=== PATIENT | female | born 1995 | race Hispanic/Latino ===

== ENCOUNTER 2023-11-15 20:09 | Emergency (ER) | payer MEDICAID, OTHER ==
[~2023-11-15] VITALS: Ht 160 cm; Wt 69.9 kg
[~2023-11-15 20:09] MED LIST: IBUP-2088 PO; PREN-154 PO
[2023-11-15 21:08] VITALS: BP 111/57; PULSE 107; RESP 18; O2SAT 100
[2023-11-15 21:49] LABS: RAPID GROUP A STREP negative (NEGATIVE)
[2023-11-15 22:00] LABS: INFLUENZA TYPE A Negative For Type A (NEGATIVE); INFLUENZA TYPE B Negative For Type B (NEGATIVE)
[2023-11-15 22:20] LABS: SARS-CoV-2, RNA, NAAT NEGATIVE SARS CoV-2 (NEGATIVE)
[2023-11-15] MEDS: PREDNISONE 20 MG TABLET PO ONE (22:32)
[2023-11-15 22:33] VITALS: TEMP 100.8
[2023-11-15] MEDS: IBUPROFEN 600 MG TABLET PO ONE (22:33)
[2023-11-15] MEDS ORDERED: PRED20TA3 PO (22:59)
[2023-11-15] MEDS ORDERED: IBUP-2070 PO (22:59)
[2023-11-15] MEDS ORDERED: BROM118S48 PO (22:59)
== END 2023-11-15 23:07 | disposition home or self-care (01) ==
LOC: EDH 20:09
DX: J06.9 Acute upper respiratory infection, unspecified (principal); Z20.822 Contact with and (suspected) exposure to COVID-19; Z79.899 Other long term (current) drug therapy
CPT/HCPCS: 87635; 87804; 87880